=== PATIENT | male | born 1945 | race Caucasian/White ===

== ENCOUNTER 2022-08-19 23:13 | Outpatient (REF) | payer MEDICARE, SELFPAY ==
[2022-08-19 20:54] LABS: Abs Immature Grans 0.02 10^3/uL (0.0-0.06); Absolute Basophil Count 0.03 10^3/uL (0.0-0.2); Absolute Eosinophil Count 0.11 10^3/uL (0.0-0.7); Absolute Lymphocyte Count 1.72 10^3/uL (1.2-3.4); Absolute Monocyte Count 0.51 10^3/uL (0.1-0.8); Absolute Neutrophil Count 4.27 10^3/uL (1.2-6.7); Basophils % 0.5; Eosinophils % 1.7; HCT 45.4 % (40.0-50.0); HGB 15.6 g/dL (13.5-17.5); Immature Grans % 0.3; Lymphocytes % 25.8; MCH 30.1 pg (27.0-33.0); MCHC 34.4 % (32.0-36.0); MCV 88 fL (80-95); MPV 11.3 fL (8.0-11.0); Monocytes % 7.7; Platelet Count 150 10^3/uL (130-400); RBC 5.18 10^6/uL (4.36-5.78); RDW-SD 45.2 fL; WBC 6.66 10^3/uL (4.4-10.8)
[2022-08-19 21:01] LABS: ALT 27 U/L (16-63); AST 28 U/L (15-37); Alkaline Phosphatase 193 U/L (46-116); Anion Gap 8.4 mmol/L (3-11); BUN 10 mg/dL (7-18); Bilirubin, Total 0.8 mg/dL (0.2-1.0); CO2 24.6 mmol/L (21.0-32.0); CREATININE 0.9 mg/dL (0.70-1.30); Calcium 9.1 mg/dL (8.5-10.1); Chloride 106 mmol/L (98-107); Estimated GFR 87.96 (mL/min/1.73m2); Glucose 113 mg/dL (74-106); Potassium 4.1 mmol/L (3.5-5.1); Sodium 139 mmol/L (136-145); Total Protein 7.4 g/dL (6.4-8.2)
[2022-08-20 21:28] LABS: PSA, Screening 119.3 ng/mL (<=6.5)
[2022-08-21 09:24] LABS: HBs Antibody, Quant 3.3 mIU/mL (See Note); Hepatitis B Surface Ab Negative (See Note)
[2022-08-21 09:25] LABS: Hepatitis B Surface Ag Negative (Negative)
[2022-08-21 09:58] LABS: Hep B Core Antibody Negative (Negative); Hepatitis C Ab w Rflx HCV PCR Reactive (Negative)
[2022-08-22 14:35] LABS: HCV RNA Qualitative Undetected (Undetected)
== END 2022-08-19 23:14 | disposition home or self-care (01) ==
LOC: NCHCN 23:13
PROVIDERS: PCP Nurse Practitioner Adult Health; Visit Provider Nurse Practitioner Family
DX: B19.20 Unspecified viral hepatitis C without hepatic coma (principal); R39.89 Other symptoms and signs involving the genitourinary system; R06.09 Other forms of dyspnea; R01.1 Cardiac murmur, unspecified; H90.3 Sensorineural hearing loss, bilateral; Z12.5 Encounter for screening for malignant neoplasm of prostate; H43.393 Other vitreous opacities, bilateral
CPT/HCPCS: 80053; 84153; 86704; 86706; 86803; 87340; 87522; 85025

== ENCOUNTER → 2022-12-09 10:55 | Outpatient (BNVA) | payer MEDICARE, SELFPAY | PROVIDERS: PCP Nurse Practitioner Adult Health; Referring Provider Nurse Practitioner Adult Health; Visit Provider Nurse Practitioner Gerontology | DX: R97.20 Elevated prostate specific antigen [PSA] (principal); N40.2 Nodular prostate without lower urinary tract symptoms | CPT/HCPCS: 51798; 99204 ==

== ENCOUNTER → 2023-01-08 14:55 | Outpatient (BNVA) | payer MEDICARE, SELFPAY | PROVIDERS: PCP Nurse Practitioner Adult Health; Referring Provider Nurse Practitioner Adult Health; Visit Provider Urology | DX: N40.2 Nodular prostate without lower urinary tract symptoms (principal); R97.20 Elevated prostate specific antigen [PSA] | CPT/HCPCS: 55700; 76942 ==

== ENCOUNTER 2023-01-08 15:03 | Outpatient (REF) | payer MEDICARE, SELFPAY ==
--- NOTE | 2023-01-08 15:20 | PROST_PTH ---
PATIENT: Pasquale Hartman LOC: [facility] U#:[id number] AGE/SX: 78/M ROOM: RE01/08/[address]: Familia Del Cid MD : 1945 BED: DIS: 01/08/2023 SPEC #: [id number] RECD: 01/08/23 18:14 STATUS: ADILSON REQ #: [id number] ALONDRA: 01/08/23 15:[address]: Familia Del Cid DEPT: Surgical Specimen RECD BY: Meena Cevallos ENTERED: 01/08/23 18:16 SP TYPE: PROST OTHR DR: Romina Estrada Tissues: 1 - PROSTATE NEEDLE BIOPSY 2 - PROSTATE NEEDLE BIOPSY 3 - PROSTATE NEEDLE BIOPSY 4 - PROSTATE NEEDLE BIOPSY 5 - PROSTATE NEEDLE BIOPSY 6 - PROSTATE NEEDLE BIOPSY 7 - PROSTATE NEEDLE BIOPSY 8 - PROSTATE NEEDLE BIOPSY 9 - PROSTATE NEEDLE BIOPSY 10 - PROSTATE NEEDLE BIOPSY 11 - PROSTATE NEEDLE BIOPSY 12 - PROSTATE NEEDLE BIOPSY Procedures: GROSS AND MICRO LEVEL 4 IMMUNOPEROXIDASE STAIN Comments: [id number]
== END 2023-01-08 15:04 | disposition home or self-care (01) ==
LOC: LBN 15:03
PROVIDERS: PCP Nurse Practitioner Adult Health; Visit Provider Urology
DX: C61 Malignant neoplasm of prostate (principal)
CPT/HCPCS: 88305; 88361

== ENCOUNTER → 2023-01-20 14:55 | Outpatient (BNVA) | payer MEDICARE, SELFPAY | PROVIDERS: PCP Nurse Practitioner Adult Health; Referring Provider Nurse Practitioner Adult Health; Visit Provider Urology | DX: C61 Malignant neoplasm of prostate (principal) | CPT/HCPCS: 99215 ==

== ENCOUNTER → 2023-01-26 00:23 | Outpatient (CLI) | payer MEDICARE, SELFPAY ==
--- NOTE | 2023-01-26 07:45 | DI.NM_ITS ---
Exam(s) NM BONE SCAN WHOLE BODY GRP EXAM: NM BONE SCAN WHOLE BODY GRP CLINICAL HISTORY: ? METS, PROSTATE CA,c61. TECHNIQUE: Injected Dose: 25 mCi Tc-99m MDP Delayed Images: 2-3 hours. COMPARISON: CT CT CHEST/ABD/PEL W from 01/26/2023 FINDINGS: Please see CT report dictated today. There are numerous small blastic appearing bone lesions in the ribs and vertebrae which are too small to register as foci of abnormal radiopharmaceutical uptake on the nuclear bone scan but nevertheless are suspicious for osseous metastatic disease. There is impressive abnormal uptake in the left ankle and distal left tibia. There are no plain film s of this region available in our PACS. I suspect that this is probably from prior fracture/hardware /combination thereof. This impressive uptake is doubtful for metastatic disease. There are photopenic zones in both knees consistent with bilateral knee prostheses. There is abnormal uptake seen in the left hip consistent with degenerative changes seen on today's CT scan. There is some uptake seen in the right-side of the mid lumbar spine. There is advanced multilevel fa cet arthropathy and there is an element of degenerative anterolisthesis of L3 upon L4 and L4 upon L5 as seen on the CT which probably accounts for this. However, there is also on CT scan an area of abn ormal density in the posterior right side of L2 vertebral body which is suspicious for blastic metast ases, this being the largest sclerotic bone lesion seen on today's CT scan. There is a focus of abnormal uptake seen in the lateral aspect of the right 10th rib. This probably corresponds to a subtle sclerotic osseous lesion seen at this level on today's CT scan within the pos terolateral aspect of the right 10th rib. There is some uptake evident in approximately T 8 level which does exhibit some degenerative disc dis ease on today's CT scan. However, please note that there also multiple small sclerotic bone lesions in multiple vertebral bodies in thoracic spine suspicious for blastic disease. There is a focus of increased uptake seen in the mid-lower cervical spine which is most probably dege nerative. There is uptake in both shoulders which is consistent with advanced degenerative changes as seen part ially included on today's CT scan. There is no abnormal focal uptake seen in the skull. Uptake at the wrists noted which is most probab ly degenerative. IMPRESSION: 1. Findings as above. However, please note that most of the findings seen on today's nuclear bone sc an do not correspond to the concerning intraosseous findings on today's CT scan. There are numerous sclerotic lesions in the skeleton involving the ribs and vertebral bodies which are suspicious for os seous blastic disease and which do not appear to register as foci of increased uptake on this nuclear study. The largest of these is in the posterior right side of L2 vertebral body and measures approx imately 1.2 by 1.3 by 1.2 cm., As measured on the CT scan. 2. Impressive abnormal uptake seen in the lower left tibia and ankle are doubtful for metastatic and most probably related to orthopedic abnormalities. 3. There are bilateral knee prostheses without evidence of obvious loosening. 4. Uptake in the left hip and both shoulders is consistent with significant degenerative change. DATA REPOSITORY:
--- NOTE | 2023-01-26 07:45 | DI.CT_ITS ---
Exam(s) CT CHEST/ABD/PEL W EXAM: CT CHEST/ABD/PEL W CLINICAL HISTORY: ? METS,PROSTATE CA,c61. TECHNIQUE: Imaging Protocol: Axial computed tomography images with coronal and sagittal reformatted images were created and reviewed CONTRAST MATERIAL: Intravenous: Omnipaque 350 Contrast volume:100 ml Oral: Yes. Oral contrast was also administered for bowel opacification. COMPARISON: [facility] BONE SCAN WHOLE BODY GRP from 01/26/2023 FINDINGS: CHEST: LUNGS: There are no infiltrates nor pleural effusions. There is a small nodule in the right lower lo be which measures 3 x 2 mm, noncalcified. MEDIASTINUM: There is no hilar nor mediastinal adenopathy. Visualized thyroid unremarkable. CARDIAC: Heart size is normal. There is no pericardial effusion.Caliber of the thoracic aorta is wit hin normal limits. OSSEOUS: No fractures evident. Degenerative changes in both shoulders-glenohumeral joints. There ar e small nonexpansile sclerotic lesions in the posterolateral aspect of the left 4th rib which may be small blastic lesions. Also another larger sclerotic lesion is noted in the lateral aspect of the le ft 5th rib and posterior aspect of the 6th rib. There is also a round sclerotic non expansile lesion in the right transverse process of what appears to be T3, probably also blastic lesion. Other small er osseous sclerotic densities are noted an as well as 1 in the posterior right side of the L2 verteb ral body. Other smaller similar densities are seen in other lower vertebral bodies as well as in the right-side of the sacrum. ABDOMEN: There is no ascites. LIVER: Liver size is upper normal but exhibits somewhat cirrhotic appearance. 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 Numerous collateral seen at this level and around the fitzgerald creatic head region. There are no discrete focal hepatic lesions in the liver. No dilated intrahepa tic ducts. GALLBLADDER/BILIARY: No obvious gallbladder pathology. CBD is not dilated. PANCREAS: No evidence of pancreatic mass nor dilatation of the pancreatic duct. SPLEEN: Spleen is not enlarged. There are no intrasplenic lesions. ADRENALS: There are no significant adrenal masses. KIDNEYS: No calculi nor hydronephrosis. No solid renal masses. No cysts evident. ABDOMINAL AORTA: There is a fusiform infrarenal abdominal aortic aneurysm which exhibits maximum ag nal diameter 4.2 cm. Common iliac arteries exhibit normal diameters. LYMPH NODES: There is no retroperitoneal nor paraaortic adenopathy. ABDOMINAL WALL: No evidence of significant anterior abdominal wall nor inguinal hernia. GI: There is no evidence of small bowel obstruction.Although the oral contrast has not yet reached th e cecum, this appears to be related to fecalization of small bowel loops. Distal ileal loops exhibit fecalization and upper normal diameters (2.5 cm). PELVIS: LYMPH NODES: There is no intrapelvic nor inguinal adenopathy. GI: No evidence of appendicitis.Abundant fecal material is noted throughout the colon. There diverti culi in the sigmoid without evidence of acute diverticulitis. URINARY BLADDER: No calculi nor masses evident REPRODUCTIVE: Prostate size is minimally prominent, indenting the bladder base. Prostate measures 5. 5 cm cephalocaudal by 6 cm wide by 5 cm AP. There does not appear to be adjacent obturator adenopath y. OSSEOUS: Degenerative changes both hips, left more than right. Small sclerotic density in the right-side of the sacrum measuring 8 x 7 mm, either bone island or rené stic metastatic lesion. There are advanced degenerative changes in the facet joints. There is a 1.2 x 1.0 cm sclerotic lesion in the posterior aspect of L2 vertebral body suspicious for blastic metast ases. There also numerous other smaller sclerotic densities in vertebral bodies in the lumbar and vi sualized thoracic spine which are probably blastic metastases. Advanced chronic degenerative disc di sease L5-S1 noted. There is some mild degenerative anterolisthesis of L3 upon L4 and L4 upon L5 rela kentrell to facet arthropathy. IMPRESSION: 1. There are multiple sclerotic osseous lesions, the largest measuring 12 x 10 mm in the posterior ri ght side of L2 vertebral body, suspicious for blastic metastases. 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 Also b lastic non expansile lesions noted in the rib cage, as described above.. There are no lytic osseous lesions evident. 2. Enlarged prostate gland with measurements as above. There is no obturator adenopathy nor other in trapelvic adenopathy. 3. Solitary small noncalcified 3 x 2 mm nodule in the right lower lobe, possibly significant. No inf iltrates nor pleural effusions nor intrathoracic adenopathy. 4. 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 Spleen size is upper normal. There is no ascites. 5. There is a fusiform infrarenal abdominal aortic aneurysm with maximum diameter 4.2 cm. There is no aneurysmal dilatation of the iliac arteries. Other findings as above. RADIATION DOSE DELIVERED: Total DLP DATA REPOSITORY: All CT scans at this facility are submitted to the National Radiology Data Registry (NRDR) Dose Index Registry (DIR) with the [employer] (ACR). RADIATION OPTIMIZATION: All CT scans at this facility use at least one of these dose optimization te chniques: automated exposure control; mA and/or kV adjustment per patient size (includes targeted exa ms where dose is matched to clinical indication); or iterative reconstruction.
[2023-01-26] MEDS: Barium Sulfate 2% W/V-Berry Smoothie 450 ML BTL 900 ML PO (09:40)
[2023-01-26 09:55] LABS: CREATININE 0.8 mg/dL (0.70-1.30); Estimated GFR 90.58 (mL/min/1.73m2)
[2023-01-26] MEDS: Normal Saline - Diluent 50 ML VIAL IJ (10:55)
[2023-01-26] MEDS: Omnipaque 350 MG/ML 500 ML BTL-Imaging package IJ (10:56)
[2023-01-26] MEDS: Normal Saline Flush 10 ML SYR IVP (10:57)
== END ==
PROVIDERS: PCP Nurse Practitioner Adult Health; Visit Provider Urology
DX: C61 Malignant neoplasm of prostate (principal); M89.8X8 Other specified disorders of bone, other site; R91.1 Solitary pulmonary nodule; K74.60 Unspecified cirrhosis of liver; I71.40 Abdominal aortic aneurysm, without rupture, unspecified
CPT/HCPCS: 74177; 78306; 71260; 82565

== ENCOUNTER → 2023-02-10 14:53 | Outpatient (BNVA) | payer MEDICARE, SELFPAY | PROVIDERS: PCP Nurse Practitioner Adult Health; Referring Provider Nurse Practitioner Adult Health; Visit Provider Urology | DX: C61 Malignant neoplasm of prostate (principal) | CPT/HCPCS: 99215 ==

== ENCOUNTER → 2023-02-18 00:55 | Outpatient (CLI) | payer MEDICARE, SELFPAY ==
--- NOTE | 2023-02-18 13:55 | DI.US_ITS ---
APPROVED REPORT EXAM: Comprehensive 2D, Doppler, and color-flow Echocardiogram Patient Location: Out-Patient [place]: Khushi Zacarias RDCS (AE) Indications: DOMINGO, Cardiac Murmur Other Information Study Quality: Adequate Conclusion Normal left ventricular wall thickness and chamber size. Ejection fraction is 60 to 65%. Wall motio n is normal. There is stage I diastolic dysfunction Normal right ventricular size and function Both atria are normal in size Aortic valve is calcified and probably trileaflet. There is severe aortic stenosis with a peak gradi ent 63, mean 39 mmHg. Calculated aortic valve area 0.6 cm??. There is trace aortic regurgitation Mildly dilated ascending aorta measuring 3.51 cm Wall motion Left Ventricle The left ventricle is normal size. The left ventricular systolic function is normal. The left ventric ular ejection fraction is within the normal range. There is normal left ventricular wall thickness. T here is normal LV segmental wall motion. Transmitral Doppler flow pattern suggests impaired LV relaxa tion. There is no ventricular septal defect visualized. LVEF is 57%. Right Ventricle The right ventricle is normal size. The right ventricular systolic function is normal. Atria The left atrium size is normal. The right atrium size is normal. The interatrial septum is intact wit h no evidence for an atrial septal defect. Aortic Valve Aortic valve is calcified. Aortic valve is probably trileaflet. Severe aortic stenosis. Peak aortic v alve gradient is 63.41mmHg. Highest mean aortic valve gradient is 39.12mmHg. Calculated AYANNA by the co ntinuity equation is .6cm2. Trivial aortic regurgitation. Mitral Valve Mild mitral annular calcification. No evidence of mitral valve stenosis. Trace mitral regurgitation. Tricuspid Valve The tricuspid valve is normal in structure. There is no tricuspid valve stenosis. Trace to mild tric uspid regurgitation. The RVSP is 17.2 mmHg. Pulmonic Valve The pulmonary valve is normal in structure. There is no pulmonic valvular stenosis. Trace pulmonic re gurgitation. Great Vessels The aortic root is normal in size. The ascending aorta is mildly dilated. Aortic arch is normal in ca liber. IVC is normal in size and collapses >50% with inspiration. Pericardium There is no pericardial effusion. 2D Dimensions IVSD d PLAX 0.91 cm M: 0.6-1.2 Ao Root d 3.16 cm M: 3.1 - 3.7 LVPW d PLAX 0.92 cm M: 0.6 - 1.2 Ao Asc Diam d 3.51 cm M: 2.6 - 3.4 LVID d PLAX 4.82 cm M: 4.2 - 5.8 LVDs 3.34 cm M: 2.5 - 4.0 LV EF Teichholz 58.1 % FS 30.66 % LV EDV (Teich) 108.7 mL LV ESV (Teich) 45.6 mL M-Mode TAPSE 2.63 cm (M/F) >1.7 Auto EF LV EDV A4C 113.1 mL LV EDV A2C 131.2 mL LV EDV BP 118.8 mL LV ESV A4C 47.9 mL LV ESV A2C 61.3 mL LV ESV BP 52.1 mL LVEF(%) A4C 57.6 % LVEF(%) A2C 53.3 % LVEF(%) BP 56.1 % LV SV A4C 65.1 ml LV SV A2C 69.9 ml LV SV BP 66.7 ml LV CO A4C 4.0 L/min LV CO A2C 4.0 L/min LV CO BP 4.0 L/min HR A4C 61.31 BPM HR A2C 56.60 BPM LV EDV Index (BP) LV Strain Long Pk Overal Avg (s) 16.65 LA Volume LA Length A4C 4.9 cm LA Length A2C 5.6 cm LA Area A4C s 16.07 cm2 LA Area A2C s 19.65 cm2 LA Vol A4C A-L 44.73 mL LA Vol A2C A-L 58.62 mL LA Vol Biplane A-L 54.7 mL LA Vol/BSA A4C A-L LA Vol/BSA A2C A-L LA Vol/BSA BP A-L 27.2 mL/m2 LA Vol A4C MOD 42.8 mL LA Vol A2C MOD 54.1 mL LA Vol BP MOD 51.1 mL RA Volume RA Area A4C 14.2 cm2 RA ESV A4C (A-L) 35.3mL RA Vol/BSA A4C A-L RA Length A4C 4.8 cm RA ESV A4C (MOD) 31.7mL LV Diastology MV E' medial 0.061 (>0.07 m/s) MV E Vmax 0.70 (0.4-1.3 m/s) MV E/E' MED 11.49 (<14) MV A Vmax 1.15 (0.4-1.3 m/s) MV E' lateral 0.066 (>0.1 m/s) E/A Ratio 0.6 MV E/E' LAT 10.56 (<14) MV E' Average 0.064 m/s MV E/E'(average) 11.01 Aortic Valve AoV Vmax 3.98 m/s LVOT Vmax 0.76 m/s AoV Peak Grad 63.4 mmHg LVOT Peak Grad 2.3 mmHg AoV Area (Vmax) 0.68 cm2 LVOT VTI 0.163 m AoV VTI 0.967 m LVOT Mean Grad 1.3 mmHg AoV Mean Jose. 2.99 m/s LVOT SV 57.71 mL AoV Mean Grad 39.1 mmHg LVOT Diam s 2.10 cm AoV Area (VTI) 0.60 cm2 Velocity Ratio 0.19 Mitral Valve MV DT 293 (160-240 msec) MV Vmax TIPS 1.16 m/s MV Mean Grad 1.6 (<2mmHg) MV VTI 0.320 m Pulmonary Valve PV Vmax 1.50 (0.5-1.5 m/s) RVOT Vmax 0.67 m/s PV Peak Grad 8.9 mmHg RVOT Peak Gr. 1.8 mmHg PV Mean Jose 1.08 m/s RVOT VTI 0.133 m PV Mean Grad 5.0 mmHg RVOT Mean Gr. 1.0 mmHg Tricuspid Valve RA Pressure 3.00 mmHg TR Vmax 1.88 m/s TV S' 0.11 m/s TR Peak Grad 14.1 mmHg RVSP (TR) 17.2 mmHg
== END ==
PROVIDERS: PCP Nurse Practitioner Adult Health; Visit Provider Nurse Practitioner Family
DX: R06.09 Other forms of dyspnea (principal)
CPT/HCPCS: 93306

== ENCOUNTER 2023-04-21 15:46 | Outpatient (CLI) | payer MEDICARE, SELFPAY ==
[2023-04-21 14:50] LABS: Abs Immature Grans 0.01 10^3/uL (0.0-0.06); Absolute Basophil Count 0.03 10^3/uL (0.0-0.2); Absolute Eosinophil Count 0.24 10^3/uL (0.0-0.7); Absolute Lymphocyte Count 1.54 10^3/uL (1.2-3.4); Absolute Monocyte Count 0.37 10^3/uL (0.1-0.8); Absolute Neutrophil Count 2.66 10^3/uL (1.2-6.7); Basophils % 0.6; Eosinophils % 4.9; HCT 43.1 % (40.0-50.0); HGB 14.7 g/dL (13.5-17.5); Immature Grans % 0.2; Lymphocytes % 31.8; MCH 29.8 pg (27.0-33.0); MCHC 34.1 % (32.0-36.0); MCV 87 fL (80-95); MPV 10.7 fL (8.0-11.0); Monocytes % 7.6; Neutrophils % 54.9; Platelet Count 117 10^3/uL (130-400); RBC 4.93 10^6/uL (4.36-5.78); RDW 13.3 % (11.8-14.1); RDW-SD 42.8 fL; WBC 4.85 10^3/uL (4.4-10.8)
[2023-04-21 14:58] LABS: ALT 34 U/L (16-63); AST 26 U/L (15-37); Albumin 3.8 g/dL (3.4-5.0); Alkaline Phosphatase 106 U/L (46-116); BUN 24 mg/dL (7-18); Bilirubin, Total 0.5 mg/dL (0.2-1.0); CREATININE 0.7 mg/dL (0.70-1.30); Calcium 9.2 mg/dL (8.5-10.1); Chloride 106 mmol/L (98-107); Estimated GFR 94.31 (mL/min/1.73m2); Glucose 109 mg/dL (74-106); Sodium 143 mmol/L (136-145); Total Protein 7.2 g/dL (6.4-8.2)
[2023-04-25 08:29] LABS: Testosterone, Total <7.0 ng/dL (240-950)
== END 2023-04-21 15:47 | disposition home or self-care (01) ==
LOC: LBO 15:48
PROVIDERS: PCP Nurse Practitioner Adult Health; Visit Provider Internal Medicine
DX: C61 Malignant neoplasm of prostate (principal)
CPT/HCPCS: 36415; 80053; 84153; 84403; 85025

== ENCOUNTER 2023-05-19 04:45 | Outpatient (CLI) | payer MEDICARE, SELFPAY ==
[2023-05-19 12:40] LABS: Abs Immature Grans 0.02 10^3/uL (0.0-0.06); Absolute Basophil Count 0.02 10^3/uL (0.0-0.2); Absolute Lymphocyte Count 1.83 10^3/uL (1.2-3.4); Absolute Monocyte Count 0.44 10^3/uL (0.1-0.8); Basophils % 0.4; HCT 43.3 % (40.0-50.0); HGB 14.7 g/dL (13.5-17.5); Immature Grans % 0.4; Lymphocytes % 36.5; MCH 29.8 pg (27.0-33.0); MCHC 33.9 % (32.0-36.0); MCV 88 fL (80-95); MPV 10.8 fL (8.0-11.0); Monocytes % 8.8; Neutrophils % 47.9; Platelet Count 122 10^3/uL (130-400); RBC 4.94 10^6/uL (4.36-5.78); RDW 13.9 % (11.8-14.1); RDW-SD 44.7 fL; WBC 5.01 10^3/uL (4.4-10.8)
[2023-05-19 13:23] LABS: ALT 30 U/L (16-63); AST 25 U/L (15-37); Albumin 3.9 g/dL (3.4-5.0); Alkaline Phosphatase 88 U/L (46-116); Anion Gap 11.5 mmol/L (3-11); BUN 19 mg/dL (7-18); Bilirubin, Total 0.8 mg/dL (0.2-1.0); CO2 25.5 mmol/L (21.0-32.0); CREATININE 0.7 mg/dL (0.70-1.30); Calcium 8.9 mg/dL (8.5-10.1); Chloride 105 mmol/L (98-107); Estimated GFR 94.31 (mL/min/1.73m2); Glucose 102 mg/dL (74-106); Potassium 3.9 mmol/L (3.5-5.1); Sodium 142 mmol/L (136-145); Total Protein 7.3 g/dL (6.4-8.2)
[2023-05-21 15:53] LABS: PSA, Ultrasensitive 8.8 ng/mL (<= 6.5)
[2023-05-24 10:28] LABS: Testosterone, Total 8.1 ng/dL (240-950)
== END 2023-05-19 04:46 | disposition home or self-care (01) ==
LOC: LBO 04:46
PROVIDERS: PCP Nurse Practitioner Adult Health; Visit Provider Internal Medicine
DX: C61 Malignant neoplasm of prostate (principal)
CPT/HCPCS: 36415; 80053; 84153; 84403; 85025

== ENCOUNTER 2023-07-06 11:42 | Outpatient (CLI) | payer MEDICARE, SELFPAY ==
[2023-07-06 12:06] LABS: Abs Immature Grans 0.04 10^3/uL (0.0-0.06); Absolute Basophil Count 0.04 10^3/uL (0.0-0.2); Absolute Eosinophil Count 0.26 10^3/uL (0.0-0.7); Absolute Lymphocyte Count 1.63 10^3/uL (1.2-3.4); Absolute Monocyte Count 0.37 10^3/uL (0.1-0.8); Absolute Neutrophil Count 3.29 10^3/uL (1.2-6.7); Basophils % 0.7; Eosinophils % 4.6; HCT 45.3 % (40.0-50.0); HGB 15.3 g/dL (13.5-17.5); Immature Grans % 0.7; MCH 30.4 pg (27.0-33.0); MCHC 33.8 % (32.0-36.0); MCV 90 fL (80-95); MPV 10.2 fL (8.0-11.0); Monocytes % 6.6; Neutrophils % 58.4; RBC 5.04 10^6/uL (4.36-5.78); RDW-SD 46.1 fL; WBC 5.63 10^3/uL (4.4-10.8)
[2023-07-06 12:07] LABS: Platelet Count 137 10^3/uL (130-400)
[2023-07-06 12:21] LABS: ALT 32 U/L (16-63); AST 21 U/L (15-37); Albumin 4.1 g/dL (3.4-5.0); Alkaline Phosphatase 107 U/L (46-116); Anion Gap 11.5 mmol/L (3-11); BUN 15 mg/dL (7-18); Bilirubin, Total 0.5 mg/dL (0.2-1.0); CO2 26.5 mmol/L (21.0-32.0); CREATININE 0.6 mg/dL (0.70-1.30); Calcium 9.6 mg/dL (8.5-10.1); Chloride 105 mmol/L (98-107); Estimated GFR 98.81 (mL/min/1.73m2); Glucose 103 mg/dL (74-106); Potassium 4.6 mmol/L (3.5-5.1); Sodium 143 mmol/L (136-145); Total Protein 7.9 g/dL (6.4-8.2)
[2023-07-10 02:41] LABS: Testosterone, Total <7.0 ng/dL (240-950)
== END 2023-07-06 11:43 | disposition home or self-care (01) ==
LOC: LBO 11:42
PROVIDERS: PCP Nurse Practitioner Adult Health; Visit Provider Internal Medicine
DX: C61 Malignant neoplasm of prostate (principal)
CPT/HCPCS: 36415; 80053; 84153; 84403; 85025

== ENCOUNTER 2023-07-14 11:55 | Outpatient (RCR) | payer MEDICARE, SELFPAY | END 2023-07-14 23:59 | disposition home or self-care (01) | LOC: CR 11:55 | PROVIDERS: PCP Nurse Practitioner Adult Health; Visit Provider Internal Medicine Cardiovascular Disease ==

== ENCOUNTER 2023-07-29 16:55 | Emergency (ER) | payer MEDICARE, SELFPAY ==
[2023-07-29 16:57] VITALS: BP 150/83; PULSE 85; RESP 18; TEMP 36; O2SAT 98
--- NOTE | 2023-07-29 17:08 | ED.GENADUL_ITS ---
Discharge Plan Disposition Patient Disposition: Home Condition: Stable Discharge Details Clinical Impression: Tick bite Primary Care Provider: Romina Estrada ED Provider: David Metz Home Meds and New Rx's Prescriptions: Continued aspirin [Adult Aspirin Regimen] 81 mg tablet,delayed release (DR/EC) 81 mg PO DAILY PRN clobetasol 0.05 % ointment 1 applic topical BID PRN triamcinolone acetonide 0.1 % cream 1 applic topical BID PRN Discharge Instructions Additional Instructions: You had no ticks embedded on exam. You were given a one-time dose of an antibiotic called doxycycline If you develop fevers or a bull's-eye appearing lesion return to the emergency department. HPI General Mode of arrival: ambulatory . Date/Time Provider Initiated Documentation: 07/29/23 16:59 . Limitations to Documentation: no limitations . Information obtained by: patient . History of Present Illness 78 year old M presents to the emergency department with the chief complaint of Tick bite, Patient started experiencing this hour(s) (1) and it has been constant. No relieving factors improve symptom(s), No exacerbating factors reported . Patient notes no other symptoms.. Patient did receive the following treatments prior to arrival, none Related Data Home Medications Medication Instructions Recorded Confirmed clobetasol 0.05 % topical ointment 1 applic topical BID PRN 09/03/22 07/29/23 triamcinolone acetonide 0.1 % 1 applic topical BID PRN 09/03/22 07/29/23 topical cream aspirin 81 mg tablet,delayed 81 mg PO DAILY PRN 12/09/22 07/29/23 release (Adult Aspirin Regimen) Allergies Allergy/AdvReac Type Severity Reaction Status Date / Time No Known Allergies Allergy Verified 07/29/23 17:00 General Stated Complaint: InsectBite KELSY: 4 Review of Systems All systems reviewed & are unremarkable except as noted in HPI and below Constitutional Constitutional: Denies chills, Denies fever(s) and Denies weakness Cardiovascular Cardiovascular: Denies chest pain and Denies dyspnea Respiratory Respiratory: Denies cough and Denies dyspnea Gastrointestinal Gastrointestinal: Denies abdominal pain, Denies nausea and Denies vomiting Musculoskeletal Musculoskeletal: Denies joint swelling Integumentary/Breasts Skin/Breast: Denies rash Neurologic Neurologic: Denies weakness Exam Const General: no acute distress Orientation: alert HENMT Head: normal to inspection Ears: external ears normal General nose exam: external nose normal Mouth: moist mucous membranes Eyes General: appearance normal, both eyes and all related structures Neck Neck: normal visual inspection Resp Effort & Inspection: normal respiratory effort and able to speak in complete sentences Cardio Rate: regular rate Skin General skin exam: no rashes or lesions noted Neuro General: patient alert and patient oriented x3 Extrem General: normal to inspection Psych Mental Status: mental status grossly normal Course Vital Signs Vital signs: Vital Signs Temperature 36 C L 07/29/23 16:57 Pulse 85 07/29/23 16:57 Respiratory Rate 18 07/29/23 16:57 Blood Pressure 150/83 H 07/29/23 16:57 Pulse Oximetry 98 07/29/23 16:57 Temperature 36 C L 07/29/23 16:57 Temperature Source Skin 07/29/23 16:57 Pulse 85 07/29/23 16:57 Respiratory Rate 18 07/29/23 16:57 Respiratory Effort Normal, Non-Labored 07/29/23 17:00 Blood Pressure 150/83 H 07/29/23 16:57 Blood Pressure Position Sitting 07/29/23 16:57 Pulse Oximetry 98 07/29/23 16:57 Oxygen Delivery Method Room Air 07/29/23 16:57 Oxygen Flow Rate 0 07/29/23 16:57 Pain Level 0 07/29/23 16:57 Medical Decision Making 78-year-old male comes in after he removed a tick from his left lower abdomen. He says he is also frequently so is not sure how long it was attached for. He denies any systemic symptoms such as fevers. He otherwise feels well. He has no rashes on exam, no retained foreign body where the tick was. 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
[2023-07-29] MEDS: Doxycycline Hyclate 100 MG CAP 200 MG PO (17:16)
== END 2023-07-29 17:18 | disposition home or self-care (01) ==
LOC: ER 17:23
PROVIDERS: Emergency Provider Emergency Medicine; PCP Nurse Practitioner Adult Health
DX: S30.861A Insect bite (nonvenomous) of abdominal wall, initial encounter (principal); Z79.82 Long term (current) use of aspirin; W57.XXXA Bitten or stung by nonvenomous insect and other nonvenomous arthropods, initial encounter; Y93.89 Activity, other specified; Y92.838 Other recreation area as the place of occurrence of the external cause
CPT/HCPCS: 99283

== ENCOUNTER 2023-08-05 11:27 | Outpatient (RCR) | payer MEDICARE, SELFPAY | END 2023-08-14 23:59 | disposition home or self-care (01) | LOC: CR 11:27 | PROVIDERS: PCP Nurse Practitioner Adult Health; Visit Provider Internal Medicine Cardiovascular Disease | DX: I71.40 Abdominal aortic aneurysm, without rupture, unspecified (principal); Z51.89 Encounter for other specified aftercare | CPT/HCPCS: S9472 ==

== ENCOUNTER 2023-10-23 13:19 | Emergency (ER) | payer MEDICARE, SELFPAY ==
[2023-10-23 13:21] VITALS: BP 150/80; PULSE 80; RESP 18; TEMP 35.9; O2SAT 96
--- NOTE | 2023-10-23 13:50 | ED.GENADUL_ITS ---
Discharge Plan Disposition Patient Disposition: Home Condition: Stable Discharge Details Clinical Impression: Cellulitis of umbilicus Primary Care Provider: Romina Estrada ED Provider: David Metz Home Meds and New Rx's Prescriptions: New doxycycline hyclate 100 mg tablet 100 mg PO BID Qty: 28 0RF Continued aspirin [Adult Aspirin Regimen] 81 mg tablet,delayed release (DR/EC) 81 mg PO DAILY PRN clobetasol 0.05 % ointment 1 applic topical BID PRN triamcinolone acetonide 0.1 % cream 1 applic topical BID PRN sertraline 50 mg tablet 50 mg PO DAILY Patient Comments: TAKE 1 TABLET BY MOUTH ONCE DAILY DIRECTED FOR 90 DAYS FOR MOOD Discharge Instructions Additional Instructions: Take the antibiotic as prescribed and you can continue the topical antibiotic If not improved in a week follow-up with your primary care provider If you feel more ill or have new symptoms such as high fevers return to the emergency department for reevaluation HPI General Mode of arrival: ambulatory . Date/Time Provider Initiated Documentation: 10/23/23 13:30 . Limitations to Documentation: no limitations . Information obtained by: patient . History of Present Illness 78 year old M presents to the emergency department with the chief complaint of belly button redness, described as mild, Patient started experiencing this week(s) (2) and it has been constant. No relieving factors improve symptom(s), No exacerbating factors reported . Patient notes no other symptoms.; denies fever/chills. Related Data Home Medications ?Medication ?Instructions ?Recorded ?Confirmed clobetasol 0.05 % topical ointment 1 applic topical BID PRN 09/03/22 10/23/23 triamcinolone acetonide 0.1 % 1 applic topical BID PRN 09/03/22 10/23/23 topical cream aspirin 81 mg tablet,delayed 81 mg PO DAILY PRN 12/09/22 10/23/23 release (Adult Aspirin Regimen) doxycycline hyclate 100 mg tablet 100 mg PO BID #28 tabs 10/23/23 sertraline 50 mg tablet 50 mg PO DAILY 10/23/23 10/23/23 Previous Rx's ?Medication ?Instructions ?Recorded doxycycline hyclate 100 mg tablet 100 mg PO BID #28 tabs 10/23/23 Allergies Allergy/AdvReac Type Severity Reaction Status Date / Time No Known Allergies Allergy Verified 10/23/23 13:23 General Stated Complaint: InsectBite KELSY: 4 Review of Systems All systems reviewed & are unremarkable except as noted in HPI and below Constitutional Constitutional: Denies chills, Denies fever(s) and Denies weakness Cardiovascular Cardiovascular: Denies chest pain and Denies dyspnea Respiratory Respiratory: Denies cough and Denies dyspnea Gastrointestinal Gastrointestinal: Denies abdominal pain, Denies nausea and Denies vomiting Integumentary/Breasts Skin/Breast: Reports erythema Neurologic Neurologic: Denies weakness Exam Const General: no acute distress Orientation: alert HENMT Head: normal to inspection Ears: external ears normal General nose exam: external nose normal Mouth: moist mucous membranes Eyes General: appearance normal, both eyes and all related structures Neck Neck: normal visual inspection Resp Effort & Inspection: normal respiratory effort and able to speak in complete sentences Cardio Rate: regular rate GI Palpation: soft and nontender Skin General skin exam: erythema Neuro General: patient alert and patient oriented x3 Extrem General: normal to inspection Psych Mental Status: mental status grossly normal Course Vital Signs Vital signs: Vital Signs Temperature 35.9 C L 10/23/23 13:21 Pulse 80 10/23/23 13:21 Respiratory Rate 18 10/23/23 13:21 Blood Pressure 150/80 H 10/23/23 13:21 Pulse Oximetry 96 10/23/23 13:21 Temperature 35.9 C L 10/23/23 13:21 Temperature Source Temporal Artery Scan 10/23/23 13:21 Pulse 80 10/23/23 13:21 Respiratory Rate 18 10/23/23 13:21 Respiratory Effort Normal, Non-Labored 10/23/23 13:24 Blood Pressure 150/80 H 10/23/23 13:21 Blood Pressure Position Supine 10/23/23 13:21 Pulse Oximetry 96 10/23/23 13:21 Oxygen Delivery Method Room Air 10/23/23 13:21 Oxygen Flow Rate 0 10/23/23 13:21 Medical Decision Making 78-year-old male with a history of prostate cancer who comes in with umbilicus redness for 2 weeks after he removed a tick. He is not sure how long the tick was on there for. He has not had any fevers or chills. He has been using topical antibiotics with some relief. No fevers or chills and he appears well on exam in no distress. His outer umbilicus is mildly erythematous and extends away by approximately 1 cm. There is no fluctuance inside and there is no tenderness. No findings to suggest abscess. I suspect cellulitis, will treat with doxycycline given it was from a tick bite. Do not feel any labs or imaging indicated. He will follow-up with his PCP if not improving and return precautions given Differential Diagnosis Differential Diagnosis: Tick bite, cellulitis Quality:SDOH Health Related Social Needs: No Data to Display PFSH All Active Problems (Updated 10/23/23 @ 13:53 by David Metz MD) Cellulitis of umbilicus (Acute) Prostate cancer (Chronic) Prostate nodule (Acute) Bilateral sensorineural hearing loss (Acute) Medical History ADHD BPH w urinary obs/LUTS Cardiac murmur Chronic pain syndrome Dermatitis DOMINGO (dyspnea on exertion) Elevated PSA HCV (hepatitis C virus) High myopia, both eyes Horseshoe tear of retina Neurofibroma Osteoarthritis Seborrheic keratosis Sensorineural hearing loss Stasis eczema Trigger finger Surgical History History of total left knee replacement Status post ankle arthrodesis Social History Smoking/Tobacco Use Status: Former Tobacco Use Smoking risk assessment performed?: Yes Alcohol Intake: never Drug use: Occasionally Substance use type: marijuana Do you feel safe at home: Yes Do you feel safe in your relationship?: Yes
[2023-10-23 14:05] VITALS: BP 142/70; PULSE 78; RESP 18; TEMP 36.1; O2SAT 97
== END 2023-10-23 14:07 | disposition home or self-care (01) ==
PROVIDERS: Emergency Provider Emergency Medicine; PCP Nurse Practitioner Adult Health
DX: L03.116 Cellulitis of left lower limb (principal); Z79.82 Long term (current) use of aspirin; Z87.891 Personal history of nicotine dependence
CPT/HCPCS: 99283

== ENCOUNTER 2023-11-02 10:36 | Outpatient (CLI) | payer MEDICARE, SELFPAY ==
[2023-11-02 14:12] LABS: Abs Immature Grans 0.03 10^3/uL (0.0-0.06); Absolute Basophil Count 0.03 10^3/uL (0.0-0.2); Absolute Eosinophil Count 0.37 10^3/uL (0.0-0.7); Absolute Lymphocyte Count 1.71 10^3/uL (1.2-3.4); Absolute Monocyte Count 0.47 10^3/uL (0.1-0.8); Absolute Neutrophil Count 3.94 10^3/uL (1.2-6.7); Basophils % 0.5 %; Eosinophils % 5.6 %; HCT 43.3 % (40.0-50.0); HGB 14.7 g/dL (13.5-17.5); Immature Grans % 0.5 %; Lymphocytes % 26.1 %; MCH 30.5 pg (27.0-33.0); MCHC 33.9 % (32.0-36.0); MCV 90 fL (80-95); MPV 10.5 fL (8.0-11.0); Monocytes % 7.2 %; Neutrophils % 60.1 %; Platelet Count 125 10^3/uL (130-400); RBC 4.82 10^6/uL (4.36-5.78); RDW 13.9 % (11.8-14.1); RDW-SD 46.1 fL; WBC 6.55 10^3/uL (4.4-10.8)
[2023-11-02 14:36] LABS: ALT 34 U/L (16-63); AST 29 U/L (15-37); Albumin 3.9 g/dL (3.4-5.0); Alkaline Phosphatase 99 U/L (46-116); Anion Gap 9.1 mmol/L (3-11); BUN 21 mg/dL (7-18); Bilirubin, Total 0.54 mg/dL (0.2-1.0); CO2 25.9 mmol/L (21.0-32.0); CREATININE 0.9 mg/dL (0.70-1.30); Calcium 9.2 mg/dL (8.5-10.1); Chloride 103 mmol/L (98-107); Estimated GFR 87.42 (mL/min/1.73m2); Glucose 123 mg/dL (74-106); Potassium 4.6 mmol/L (3.5-5.1); Sodium 138 mmol/L (136-145); Total Protein 7.1 g/dL (6.4-8.2)
[2023-11-06 09:51] LABS: Testosterone, Total <7.0 ng/dL (240-950)
== END 2023-11-02 10:37 | disposition home or self-care (01) ==
LOC: LBO 11-12 10:37
PROVIDERS: PCP Nurse Practitioner Adult Health; Visit Provider Internal Medicine
DX: C61 Malignant neoplasm of prostate (principal)
CPT/HCPCS: 36415; 80053; 84153; 84403; 85025

== ENCOUNTER 2023-12-22 12:33 | Outpatient (CLI) | payer MEDICARE, SELFPAY ==
[2023-12-22 12:48] LABS: Abs Immature Grans 0.01 10^3/uL (0.0-0.06); Absolute Basophil Count 0.02 10^3/uL (0.0-0.2); Absolute Eosinophil Count 0.15 10^3/uL (0.0-0.7); Absolute Lymphocyte Count 1.56 10^3/uL (1.2-3.4); Absolute Monocyte Count 0.52 10^3/uL (0.1-0.8); Absolute Neutrophil Count 3.86 10^3/uL (1.2-6.7); Basophils % 0.3 %; Eosinophils % 2.5 %; HCT 44.5 % (40.0-50.0); Immature Grans % 0.2 %; Lymphocytes % 25.5 %; MCH 30.2 pg (27.0-33.0); MCHC 33.7 % (32.0-36.0); MCV 90 fL (80-95); MPV 10.3 fL (8.0-11.0); Monocytes % 8.5 %; Platelet Count 133 10^3/uL (130-400); RBC 4.97 10^6/uL (4.36-5.78); RDW-SD 46.1 fL; WBC 6.12 10^3/uL (4.4-10.8)
[2023-12-22 13:02] LABS: ALT 25 U/L (16-63); AST 24 U/L (15-37); Albumin 3.8 g/dL (3.4-5.0); Alkaline Phosphatase 103 U/L (46-116); Anion Gap 9.5 mmol/L (3-11); BUN 16 mg/dL (7-18); Bilirubin, Total 0.64 mg/dL (0.2-1.0); CO2 23.5 mmol/L (21.0-32.0); CREATININE 0.8 mg/dL (0.70-1.30); Calcium 9.3 mg/dL (8.5-10.1); Chloride 106 mmol/L (98-107); Estimated GFR 90.58 (mL/min/1.73m2); Glucose 120 mg/dL (74-106); Potassium 4.4 mmol/L (3.5-5.1); Sodium 139 mmol/L (136-145); Total Protein 7.4 g/dL (6.4-8.2)
[2023-12-25 11:36] LABS: PSA, Ultrasensitive 1.7 ng/mL (<= 6.5)
[2023-12-26 15:17] LABS: Testosterone, Total <7.0 ng/dL (240-950)
== END 2023-12-22 12:34 | disposition home or self-care (01) ==
LOC: LBO 12:34
PROVIDERS: PCP Nurse Practitioner Adult Health; Visit Provider Internal Medicine
DX: C61 Malignant neoplasm of prostate (principal)
CPT/HCPCS: 36415; 80053; 84153; 84403; 85025

== ENCOUNTER 2024-01-19 02:38 | Outpatient (CLI) | payer MEDICARE, SELFPAY ==
[2024-01-19 14:14] LABS: Abs Immature Grans 0.02 10^3/uL (0.0-0.06); Absolute Basophil Count 0.03 10^3/uL (0.0-0.2); Absolute Eosinophil Count 0.17 10^3/uL (0.0-0.7); Absolute Lymphocyte Count 1.86 10^3/uL (1.2-3.4); Absolute Monocyte Count 0.55 10^3/uL (0.1-0.8); Absolute Neutrophil Count 4.02 10^3/uL (1.2-6.7); Basophils % 0.5 %; Eosinophils % 2.6 %; HCT 42.8 % (40.0-50.0); HGB 14.7 g/dL (13.5-17.5); Immature Grans % 0.3 %; MCH 30.4 pg (27.0-33.0); MCHC 34.3 % (32.0-36.0); MCV 88 fL (80-95); MPV 10.2 fL (8.0-11.0); Monocytes % 8.3 %; Neutrophils % 60.3 %; Platelet Count 106 10^3/uL (130-400); RBC 4.84 10^6/uL (4.36-5.78); RDW 13.8 % (11.8-14.1); RDW-SD 44.6 fL; WBC 6.65 10^3/uL (4.4-10.8)
[2024-01-19 14:32] LABS: ALT 26 U/L (16-63); AST 22 U/L (15-37); Albumin 3.7 g/dL (3.4-5.0); Alkaline Phosphatase 106 U/L (46-116); BUN 15 mg/dL (7-18); Bilirubin, Total 0.53 mg/dL (0.2-1.0); CREATININE 0.8 mg/dL (0.70-1.30); Calcium 9.4 mg/dL (8.5-10.1); Chloride 107 mmol/L (98-107); Estimated GFR 90.02 (mL/min/1.73m2); Glucose 113 mg/dL (74-106); Potassium 4.2 mmol/L (3.5-5.1); Sodium 141 mmol/L (136-145); Total Protein 7.3 g/dL (6.4-8.2)
[2024-01-21 10:24] LABS: PSA, Ultrasensitive 0.84 ng/mL (<= 6.5)
[2024-01-22 14:51] LABS: Testosterone, Total 8.2 ng/dL (240-950)
== END 2024-01-19 02:39 | disposition home or self-care (01) ==
LOC: LBO 02:38
PROVIDERS: PCP Nurse Practitioner Adult Health; Visit Provider Internal Medicine
DX: C61 Malignant neoplasm of prostate (principal)
CPT/HCPCS: 36415; 80053; 84153; 84403; 85025

== ENCOUNTER 2024-03-01 03:00 | Outpatient (CLI) | payer MEDICARE, SELFPAY ==
[2024-03-01 13:45] LABS: Abs Immature Grans 0.02 10^3/uL (0.0-0.06); Absolute Basophil Count 0.02 10^3/uL (0.0-0.2); Absolute Eosinophil Count 0.21 10^3/uL (0.0-0.7); Absolute Lymphocyte Count 1.78 10^3/uL (1.2-3.4); Absolute Neutrophil Count 3.78 10^3/uL (1.2-6.7); Basophils % 0.3 %; Eosinophils % 3.3 %; HCT 43.4 % (40.0-50.0); HGB 14.4 g/dL (13.5-17.5); Immature Grans % 0.3 %; Lymphocytes % 28.2 %; MCHC 33.2 % (32.0-36.0); MCV 90 fL (80-95); MPV 10.3 fL (8.0-11.0); Monocytes % 7.9 %; Platelet Count 131 10^3/uL (130-400); RDW 13.8 % (11.8-14.1); RDW-SD 46.2 fL; WBC 6.31 10^3/uL (4.4-10.8)
[2024-03-01 13:50] LABS: ALT 19 U/L (16-63); AST 20 U/L (15-37); Albumin 3.9 g/dL (3.4-5.0); Alkaline Phosphatase 104 U/L (46-116); Anion Gap 5.5 mmol/L (3-11); BUN 14 mg/dL (7-18); Bilirubin, Total 0.43 mg/dL (0.2-1.0); CO2 29.5 mmol/L (21.0-32.0); CREATININE 0.8 mg/dL (0.70-1.30); Calcium 9.1 mg/dL (8.5-10.1); Chloride 104 mmol/L (98-107); Estimated GFR 90.02 (mL/min/1.73m2); Glucose 102 mg/dL (74-106); Potassium 4.1 mmol/L (3.5-5.1); Sodium 139 mmol/L (136-145); Total Protein 7.4 g/dL (6.4-8.2)
[2024-03-03 11:39] LABS: PSA, Ultrasensitive 0.24 ng/mL (<= 6.5)
[2024-03-04 16:31] LABS: Testosterone, Total 9.3 ng/dL (240-950)
== END 2024-03-01 03:01 | disposition home or self-care (01) ==
LOC: LBO 03:01
PROVIDERS: PCP Nurse Practitioner Adult Health; Visit Provider Internal Medicine
DX: C61 Malignant neoplasm of prostate (principal)
CPT/HCPCS: 36415; 80053; 84153; 84403; 85025

== ENCOUNTER 2024-04-14 04:09 | Outpatient (CLI) | payer MEDICARE, SELFPAY ==
[2024-04-15 11:55] LABS: Abs Immature Grans 0.01 10^3/uL (0.0-0.06); Absolute Basophil Count 0.03 10^3/uL (0.0-0.2); Absolute Eosinophil Count 0.19 10^3/uL (0.0-0.7); Absolute Lymphocyte Count 1.69 10^3/uL (1.2-3.4); Absolute Neutrophil Count 3.13 10^3/uL (1.2-6.7); Basophils % 0.6 %; Eosinophils % 3.6 %; HCT 44.8 % (40.0-50.0); HGB 15.1 g/dL (13.5-17.5); Immature Grans % 0.2 %; Lymphocytes % 31.6 %; MCH 29.7 pg (27.0-33.0); MCHC 33.7 % (32.0-36.0); MCV 88 fL (80-95); MPV 10.9 fL (8.0-11.0); Monocytes % 5.6 %; Neutrophils % 58.4 %; Platelet Count 118 10^3/uL (130-400); RBC 5.09 10^6/uL (4.36-5.78); RDW 13.7 % (11.8-14.1); RDW-SD 44.4 fL; WBC 5.35 10^3/uL (4.4-10.8)
[2024-04-15 12:04] LABS: ALT 29 U/L (16-63); AST 21 U/L (15-37); Albumin 3.8 g/dL (3.4-5.0); Alkaline Phosphatase 92 U/L (46-116); BUN 15 mg/dL (7-18); Bilirubin, Total 0.55 mg/dL (0.2-1.0); CREATININE 0.8 mg/dL (0.70-1.30); Calcium 9.2 mg/dL (8.5-10.1); Chloride 104 mmol/L (98-107); Estimated GFR 90.02 (mL/min/1.73m2); Glucose 137 mg/dL (74-106); Potassium 4.3 mmol/L (3.5-5.1); Sodium 143 mmol/L (136-145); Total Protein 7.1 g/dL (6.4-8.2)
[2024-04-18 13:55] LABS: PSA, Ultrasensitive 0.16 ng/mL (<= 6.5)
[2024-04-19 17:01] LABS: Testosterone, Total 7.7 ng/dL (240-950)
== END 2024-04-14 04:10 | disposition home or self-care (01) ==
LOC: LBO 04:09
PROVIDERS: PCP Nurse Practitioner Adult Health; Visit Provider Nurse Practitioner
DX: C61 Malignant neoplasm of prostate (principal)
CPT/HCPCS: 36415; 80053; 84153; 84403; 85025

== ENCOUNTER 2024-05-27 00:29 | Outpatient (CLI) | payer MEDICARE, SELFPAY ==
[2024-05-27 13:19] LABS: Abs Immature Grans 0.04 10^3/uL (0.0-0.06); Absolute Basophil Count 0.03 10^3/uL (0.0-0.2); Absolute Eosinophil Count 0.21 10^3/uL (0.0-0.7); Absolute Lymphocyte Count 2.39 10^3/uL (1.2-3.4); Absolute Monocyte Count 0.45 10^3/uL (0.1-0.8); Absolute Neutrophil Count 3.69 10^3/uL (1.2-6.7); Basophils % 0.4 %; Eosinophils % 3.1 %; HCT 46.9 % (40.0-50.0); HGB 15.7 g/dL (13.5-17.5); Immature Grans % 0.6 %; Lymphocytes % 35.1 %; MCHC 33.5 % (32.0-36.0); MCV 90 fL (80-95); MPV 9.9 fL (8.0-11.0); Monocytes % 6.6 %; Neutrophils % 54.2 %; Platelet Count 163 10^3/uL (130-400); RBC 5.23 10^6/uL (4.36-5.78); RDW 13.6 % (11.8-14.1); RDW-SD 44.6 fL; WBC 6.81 10^3/uL (4.4-10.8)
[2024-05-27 14:11] LABS: ALT 25 U/L (16-63); AST 18 U/L (15-37); Alkaline Phosphatase 92 U/L (46-116); Anion Gap 9.2 mmol/L (3-11); BUN 21 mg/dL (7-18); Bilirubin, Total 0.6 mg/dL (0.2-1.0); CO2 27.8 mmol/L (21.0-32.0); CREATININE 0.7 mg/dL (0.70-1.30); Calcium 9.7 mg/dL (8.5-10.1); Chloride 106 mmol/L (98-107); Estimated GFR 93.73 (mL/min/1.73m2); Glucose 108 mg/dL (74-106); Potassium 4.4 mmol/L (3.5-5.1); Sodium 143 mmol/L (136-145); Total Protein 7.9 g/dL (6.4-8.2)
[2024-06-01 16:41] LABS: PSA, Ultrasensitive 0.15 ng/mL (<= 6.5)
[2024-06-03 15:40] LABS: Testosterone, Total 9.6 ng/dL (240-950)
== END 2024-05-27 00:30 | disposition home or self-care (01) ==
PROVIDERS: PCP Nurse Practitioner Adult Health; Visit Provider Nurse Practitioner
DX: C61 Malignant neoplasm of prostate (principal)
CPT/HCPCS: 36415; 80053; 84153; 84403; 85025

== ENCOUNTER 2024-07-12 00:29 | Outpatient (CLI) | payer MEDICARE, SELFPAY ==
[2024-07-12 14:41] LABS: Abs Immature Grans 0.02 10^3/uL (0.0-0.06); Absolute Basophil Count 0.04 10^3/uL (0.0-0.2); Absolute Eosinophil Count 0.24 10^3/uL (0.0-0.7); Absolute Lymphocyte Count 1.92 10^3/uL (1.2-3.4); Absolute Monocyte Count 0.58 10^3/uL (0.1-0.8); Absolute Neutrophil Count 2.96 10^3/uL (1.2-6.7); Basophils % 0.7 %; Eosinophils % 4.2 %; HCT 42.1 % (40.0-50.0); Immature Grans % 0.3 %; Lymphocytes % 33.3 %; MCH 29.9 pg (27.0-33.0); MCHC 33.3 % (32.0-36.0); MCV 90 fL (80-95); MPV 10.6 fL (8.0-11.0); Monocytes % 10.1 %; Neutrophils % 51.4 %; Platelet Count 134 10^3/uL (130-400); RBC 4.68 10^6/uL (4.36-5.78); RDW 13.9 % (11.8-14.1); RDW-SD 45.7 fL; WBC 5.76 10^3/uL (4.4-10.8)
[2024-07-12 15:28] LABS: ALT 19 U/L (16-63); AST 20 U/L (15-37); Albumin 3.6 g/dL (3.4-5.0); Alkaline Phosphatase 88 U/L (46-116); BUN 16 mg/dL (7-18); Bilirubin, Total 0.6 mg/dL (0.2-1.0); CREATININE 0.7 mg/dL (0.70-1.30); Calcium 9.5 mg/dL (8.5-10.1); Chloride 105 mmol/L (98-107); Estimated GFR 93.73 (mL/min/1.73m2); Glucose 107 mg/dL (74-106); Potassium 4.7 mmol/L (3.5-5.1); Sodium 140 mmol/L (136-145); Total Protein 6.9 g/dL (6.4-8.2)
[2024-07-15 14:18] LABS: PSA, Ultrasensitive 0.09 ng/mL (<= 6.5)
[2024-07-17 18:20] LABS: Testosterone, Total 7.9 ng/dL (240-950)
== END 2024-07-12 00:30 | disposition home or self-care (01) ==
PROVIDERS: Nurse Practitioner; PCP Nurse Practitioner Adult Health; Visit Provider Nurse Practitioner Adult Health
DX: C61 Malignant neoplasm of prostate (principal)
CPT/HCPCS: 36415; 80053; 84153; 84403; 85025

== ENCOUNTER 2024-10-18 03:43 | Outpatient (CLI) | payer MEDICARE, SELFPAY ==
[2024-10-18 16:00] LABS: Abs Immature Grans 0.02 10^3/uL (0.0-0.06); HCT 41.6 % (40.0-50.0); HGB 14.4 g/dL (13.5-17.5); Immature Grans % 0.3 %; MCH 29.6 pg (27.0-33.0); MCHC 34.6 % (32.0-36.0); MCV 86 fL (80-95); MPV 10.2 fL (8.0-11.0); Platelet Count 130 10^3/uL (130-400); RBC 4.86 10^6/uL (4.36-5.78); RDW 13.8 % (11.8-14.1); RDW-SD 43.1 fL; WBC 6.80 10^3/uL (4.4-10.8)
[2024-10-18 17:31] LABS: AST 23 U/L (15-37); Albumin 4.0 g/dL (3.4-5.0); Alkaline Phosphatase 101 U/L (46-116); Anion Gap 7.8 mmol/L (3-11); BUN 14 mg/dL (7-18); CO2 24.2 mmol/L (21.0-32.0); Calcium 9.2 mg/dL (8.5-10.1); Chloride 104 mmol/L (98-107); Estimated GFR 93.73 (mL/min/1.73m2); Glucose 111 mg/dL (74-106); Potassium 4.3 mmol/L (3.5-5.1); Sodium 136 mmol/L (136-145); Total Protein 7.2 g/dL (6.4-8.2)
[2024-10-18 17:54] LABS: ALT 23 U/L (16-63); Bilirubin, Total 0.6 mg/dL (0.2-1.0)
== END 2024-10-18 03:44 | disposition home or self-care (01) ==
LOC: LBO 03:43
PROVIDERS: PCP Nurse Practitioner Adult Health; Visit Provider Nurse Practitioner
DX: C61 Malignant neoplasm of prostate (principal)
CPT/HCPCS: 36415; 80053; 84153; 84403; 85025

== ENCOUNTER 2025-01-17 01:25 | Outpatient (CLI) | payer MEDICARE, SELFPAY ==
[2025-01-17 12:45] LABS: Abs Immature Grans 0.01 10^3/uL (0.0-0.06); HCT 41.9 % (40.0-50.0); HGB 14.1 g/dL (13.5-17.5); Immature Grans % 0.2 %; MCH 29.4 pg (27.0-33.0); MCHC 33.7 % (32.0-36.0); MCV 88 fL (80-95); MPV 10.5 fL (8.0-11.0); Platelet Count 115 10^3/uL (130-400); RBC 4.79 10^6/uL (4.36-5.78); RDW 13.8 % (11.8-14.1); RDW-SD 44.4 fL; WBC 6.10 10^3/uL (4.4-10.8)
[2025-01-17 12:58] LABS: ALT 20 U/L (16-63); AST 19 U/L (15-37); Albumin 3.8 g/dL (3.4-5.0); Alkaline Phosphatase 95 U/L (46-116); Anion Gap 10.3 mmol/L (3-11); BUN 18 mg/dL (7-18); Bilirubin, Total 0.4 mg/dL (0.2-1.0); CO2 24.7 mmol/L (21.0-32.0); Calcium 9.0 mg/dL (8.5-10.1); Chloride 106 mmol/L (98-107); Glucose 99 mg/dL (74-106); Potassium 4.2 mmol/L (3.5-5.1); Sodium 141 mmol/L (136-145); Total Protein 7.1 g/dL (6.4-8.2)
== END 2025-01-17 01:26 | disposition home or self-care (01) ==
LOC: LBO 01:25
PROVIDERS: PCP Nurse Practitioner Adult Health; Visit Provider Nurse Practitioner
DX: C61 Malignant neoplasm of prostate (principal)
CPT/HCPCS: 36415; 80053; 84153; 84403; 85025